=== PATIENT | female | born 1955 | race Caucasian/White ===

== ENCOUNTER 2018-05-18 15:19 | Inpatient (IN) | payer MEDICAID ==
[~2018-05-18] VITALS: Ht 165.1 cm; Wt 54.5 kg
[~2018-05-18 15:19] MED LIST: ALB0.5UD IH; ALBU18HF2 IH; AMLO2.5T2 PO; ASPI-1265 PO; BUDE10.22 INH; CARV3.12 PO; CITA-278 PO; DULO-31 PO; FERR325T28 PO; FOLI-43 PO; FURO-150 PO; GABA800T2 PO; GUAI600T45 PO; KETO5DRO75 EACHEYE; LORA10TA65 PO; MONT10TA24 PO; NITR0.4T51 SL; PANT40TA4 PO; PRAV10TA38 PO; SPIIN INH; THI100T PO
[2018-05-18] MEDS ORDERED: HYDROcodone/acetaminophen 5mg/325mg tablet PO ONE (15:55)
[2018-05-18] MEDS ORDERED: morphine 5 MG/ML injection IV ONE (16:50)
[2018-05-18] MEDS ORDERED: morphine 4 MG/ML inj SYRINge IV ONE ×2 (16:55→18:35)
[2018-05-18] MEDS ORDERED: ipratropium/albuterol 3ml nebule NEB ONE (16:55)
[2018-05-18 17:14] LABS: BASOPHILS % (AUTO) 0.3 % (0-1); EOSINOPHILS % (AUTO) 0.7 % (0-6); HEMATOCRIT 38.7 % (35.0-45.0); HEMOGLOBIN 12.9 g/dl (12.0-16.0); LYMPHOCYTES # (AUTO) 0.5 X10'3 (1.1-4.8); LYMPHOCYTES % (AUTO) 11.5 % (21-51); MEAN CORPUSCULAR HEMOGLOBIN 31.6 PG (27.0-31.0); MEAN CORPUSCULAR HGB CONC 33.3 % (33.0-36.5); MEAN CORPUSCULAR VOLUME 94.8 FL (78-98); MEAN PLATELET VOLUME 8.4 FL (7.4-10.4); MONOCYTES # (AUTO) 0.5 X10'3 (0-0.9); NEUTROPHILS # (AUTO) 3.3 X10'3 (1.8-7.7); NEUTROPHILS % (AUTO) 75.5 % (42-75); PLATELET COUNT 98 X10'3 (140-440); RED BLOOD COUNT 4.08 X10'6 (4.20-5.60); RED CELL DISTRIBUTION WIDTH 15.2 % (11.5-14.5); WHITE BLOOD COUNT 4.4 X10'3 (4.5-11.0)
[2018-05-18 17:24] LABS: INR 1.1 INR; PARTIAL THROMBOPLASTIN TIME 28 SECONDS (22-32); PROTHROMBIN TIME 11.8 SECONDS (9.0-12.0)
[2018-05-18 17:30] LABS: ALANINE AMINOTRANSFERASE 22 U/L (12-78); ALBUMIN 3.1 G/DL (3.4-5.0); ALBUMIN/GLOBULIN RATIO 0.7 (1.1-1.5); ALKALINE PHOSPHATASE 190 IU/L (46-116); ANION GAP 10 (8-16); ASPARTATE AMINO TRANSFERASE 38 U/L (10-37); BILIRUBIN,TOTAL 1.1 MG/DL (0.1-1.0); BLOOD UREA NITROGEN 7 MG/DL (7-18); CALCIUM 8.4 MG/DL (8.5-10.1); CHLORIDE 96 MMOL/L (99-107); CREATININE 0.88 MG/DL (0.40-0.90); GLUCOSE 102 MG/DL (70-104); SODIUM 135 MMOL/L (135-145); TOTAL CARBON DIOXIDE 29.3 MMOL/L (24-32); TOTAL PROTEIN 7.8 G/DL (6.4-8.2); eGFR 65 ML/MIN
[2018-05-18 17:38] LABS: POTASSIUM 2.7 MMOL/L (3.5-5.1)
[2018-05-18] MEDS ORDERED: potassium Cl 20 mEq SR tablet PO ONE (17:40)
[2018-05-18] MEDS ORDERED: normal saline 1000ML IV soln IVB ONE (17:40)
[2018-05-18 17:54] LABS: CLARITY,URINE CLEAR (Clear); COLOR,URINE STRAW (Yellow); GLUCOSE, URINE NEGATIVE (Neg); KETONES,URINE NEGATIVE (Neg); LEUKOCYTE ESTERASE ,URINE NEGATIVE (Neg); NITRITES, URINE NEGATIVE (Neg); OCCULT BLOOD,URINE NEGATIVE (Neg); PROTEIN,URINE NEGATIVE (Neg); UA COLLECTION TYPE FOLEY CATH; UROBILINOGEN,URINE 0.2 E.U/dL (0.2-1.0)
[2018-05-18] MEDS: magnesium 1gm/100ml D5W IVPB 100 ML IV SCH ×2 (18:02→19:16)
[2018-05-18 18:05] LABS: MAGNESIUM 1.4 MG/DL (1.5-2.4)
[2018-05-18] MEDS: potassium 10mEq/100ml NS w/LIDOcaine (10mg/bag) IV SCH ×2 (18:09→19:15)
[2018-05-18] MEDS ORDERED: CefTRIAXone/D5W-Rocephin 1gm 50 ML IV ONE (18:35)
[2018-05-18] MEDS ORDERED: magnesium 1gm/100ml D5W IVPB 50 ML IV PRN (20:35)
[2018-05-18] MEDS ORDERED: morphine 4 MG/ML inj SYRINge IV PRN (20:35)
[2018-05-18] MEDS ORDERED: potassium Cl 20 mEq SR tablet PO PRN ×2 (20:35)
[2018-05-18] MEDS ORDERED: bisacodyl 10mg suppository rectal RC PRN (20:35)
[2018-05-18] MEDS ORDERED: potassium Cl 40MEQ/NS 500ml 500 ML IV PRN ×2 (20:35)
[2018-05-18] MEDS ORDERED: acetaminophen 325mg tablet PO PRN (20:35)
[2018-05-18] MEDS ORDERED: magnesium 4gm in 100ml NS 100 ML IV PRN (20:35)
[2018-05-18] MEDS ORDERED: nitroGLYCERIN 0.4mg SUBLingual tab SL PRN (20:45)
[2018-05-18] MEDS ORDERED: albuterol 2.5 MG/3 ML nebule NEB PRN (21:00)
[2018-05-18 21:33] VITALS: BP 179/87
[2018-05-18] MEDS: morphine 4 MG/ML inj SYRINge IV PRN (21:53)
[2018-05-18] MEDS: montelukast 10mg tablet PO SCH (21:55)
[2018-05-18] MEDS: normal saline 1000ml 1,000 ML IV SCH (21:55)
[2018-05-18] MEDS: amLODIPine 5mg tablet PO SCH (21:56)
[2018-05-19] VITALS (21 sets, daily range): BP systolic 110–178; BP diastolic 65–103
[2018-05-19] MEDS: morphine 4 MG/ML inj SYRINge IV PRN ×2 (01:57→05:42)
[2018-05-19] MEDS: ipratropium/albuterol 3ml nebule NEB SCH ×7 (03:15→23:09)
[2018-05-19 06:00] LABS: BASOPHILS % (AUTO) 0.2 % (0-1); EOSINOPHILS % (AUTO) 1.1 % (0-6); HEMATOCRIT 36.6 % (35.0-45.0); HEMOGLOBIN 12.5 g/dl (12.0-16.0); LYMPHOCYTES # (AUTO) 0.6 X10'3 (1.1-4.8); LYMPHOCYTES % (AUTO) 15.1 % (21-51); MEAN CORPUSCULAR HEMOGLOBIN 31.9 PG (27.0-31.0); MEAN CORPUSCULAR HGB CONC 34.2 % (33.0-36.5); MEAN CORPUSCULAR VOLUME 93.5 FL (78-98); MEAN PLATELET VOLUME 8.6 FL (7.4-10.4); MONOCYTES # (AUTO) 0.5 X10'3 (0-0.9); MONOCYTES % (AUTO) 11.8 % (2-12); NEUTROPHILS % (AUTO) 71.8 % (42-75); PLATELET COUNT 93 X10'3 (140-440); RED BLOOD COUNT 3.91 X10'6 (4.20-5.60); RED CELL DISTRIBUTION WIDTH 15.1 % (11.5-14.5); WHITE BLOOD COUNT 4.2 X10'3 (4.5-11.0)
[2018-05-19 06:25] LABS: ALANINE AMINOTRANSFERASE 21 U/L (12-78); ALBUMIN/GLOBULIN RATIO 0.7 (1.1-1.5); ALKALINE PHOSPHATASE 165 IU/L (46-116); ANION GAP 6 (8-16); ASPARTATE AMINO TRANSFERASE 41 U/L (10-37); BILIRUBIN,TOTAL 0.9 MG/DL (0.1-1.0); BLOOD UREA NITROGEN 5 MG/DL (7-18); BUN/CREATININE RATIO 8.2 (6.6-38.0); CALCIUM 7.6 MG/DL (8.5-10.1); CHLORIDE 98 MMOL/L (99-107); CREATININE 0.61 MG/DL (0.40-0.90); GLUCOSE 115 MG/DL (70-104); MAGNESIUM 1.4 MG/DL (1.5-2.4); PHOSPHORUS 2.4 MG/DL (2.3-4.5); POTASSIUM 3.2 MMOL/L (3.5-5.1); SODIUM 134 MMOL/L (135-145); TOTAL CARBON DIOXIDE 30.2 MMOL/L (24-32); TOTAL PROTEIN 7.6 G/DL (6.4-8.2); eGFR > 90 ML/MIN
[2018-05-19] MEDS: aspirin 81mg tab.chew PO SCH (08:00)
[2018-05-19] MEDS: BUDESONIDE 0.25 MG/2 ML AMPUL.NEB IH SCH ×2 (08:07→19:37)
[2018-05-19] MEDS: pantoprazole 40mg Tablet.DR PO SCH (08:33)
[2018-05-19] MEDS: atorvastatin 10mg tablet PO SCH (08:33)
[2018-05-19] MEDS: citalopram 20mg tablet PO SCH (08:33)
[2018-05-19] MEDS: ferrous sulfate 325mg tablet PO SCH (08:34)
[2018-05-19] MEDS: duloxetine 30mg CAPSULE.DR PO SCH (08:34)
[2018-05-19] MEDS: furosemide 20MG tablet PO SCH (08:34)
[2018-05-19] MEDS: folic acid 1mg tablet PO SCH (08:34)
[2018-05-19] MEDS: carVEDilol 3.125mg tablet PO SCH ×2 (08:34→19:40)
[2018-05-19] MEDS: thiamine 100mg tablet PO SCH (08:34)
[2018-05-19] MEDS: naphazoline/pheniramine eye 1 DROP BOTTLE EACHEYE SCH ×2 (08:40→19:40)
[2018-05-19] MEDS: magnesium Cl slow-release 64mg tablet PO PRN ×2 (08:48→19:39)
[2018-05-19] MEDS ORDERED: morphine 4 MG/ML inj SYRINge IV PRN ×6 (09:10→17:15)
[2018-05-19] MEDS ORDERED: ringers solution, lacted 1,000 ML IV SCH ×2 (11:12→13:40)
[2018-05-19] MEDS ORDERED: hydrALAZINE 20mg/ml inj. IV PRN (11:15)
[2018-05-19] MEDS ORDERED: fentaNYL/PF 50MCG/1 ML 2ML syringe IV PRN ×2 (11:15)
[2018-05-19] MEDS ORDERED: ondansetron/PF 4mg/2ml inj IV PRN ×3 (11:15→16:30)
[2018-05-19] MEDS ORDERED: clindamycin 600mg/D5W 50ml 50 ML IV ONE (12:00)
[2018-05-19] MEDS ORDERED: BUPIVAcaine/PF 7.5mg/ml (0.75%) 10ml vial ONE (12:47)
[2018-05-19] MEDS ORDERED: midazolam 2 mg/2 ml injection ONE (12:51)
[2018-05-19] MEDS ORDERED: fentaNYL/PF 50MCG/1 ML 2ML syringe ONE (12:51)
[2018-05-19] MEDS ORDERED: meperidine/PF 25mg/ml syringe IV PRN ×3 (13:40)
[2018-05-19] MEDS ORDERED: proCHLORperazine 10 MG/2 ml inj IV PRN (13:40)
[2018-05-19] MEDS ORDERED: ePHEDrine 50MG/ML INJ. ONE (14:22)
[2018-05-19] MEDS ORDERED: propofol inj 20 ML IV ONE (14:22)
[2018-05-19] MEDS ORDERED: bisacodyl 10mg suppository rectal RC PRN (14:30)
[2018-05-19] MEDS ORDERED: magnesium hydroxide 30ml (MOM) UD suspension PO PRN (14:30)
[2018-05-19] MEDS ORDERED: diphenhydrAMINE 25mg capsule PO PRN ×2 (14:30)
[2018-05-19] MEDS ORDERED: HYDROcodone/acetaminophen 5mg/325mg tablet PO PRN (16:30)
[2018-05-19] MEDS: HYDROcodone/acetaminophen 5mg/325mg tablet PO PRN ×2 (17:43→23:28)
[2018-05-19] MEDS: clindamycin 600mg/D5W 50ml 50 ML IV SCH (19:43)
[2018-05-19] MEDS: sennosides 8.6mg tablet PO SCH (21:10)
[2018-05-19] MEDS: montelukast 10mg tablet PO SCH (21:10)
[2018-05-19] MEDS: amLODIPine 5mg tablet PO SCH (21:10)
[2018-05-20] MEDS: clindamycin 600mg/D5W 50ml 50 ML IV SCH (01:39)
[2018-05-20 02:00] VITALS: BP 126/73
[2018-05-20] MEDS: ipratropium/albuterol 3ml nebule NEB SCH ×6 (03:24→23:12)
[2018-05-20 05:41] LABS: ALANINE AMINOTRANSFERASE 29 U/L (12-78); ALBUMIN 2.5 G/DL (3.4-5.0); ALBUMIN/GLOBULIN RATIO 0.6 (1.1-1.5); ALKALINE PHOSPHATASE 122 IU/L (46-116); ANION GAP 5 (8-16); ASPARTATE AMINO TRANSFERASE 58 U/L (10-37); BILIRUBIN,TOTAL 1.1 MG/DL (0.1-1.0); BLOOD UREA NITROGEN 10 MG/DL (7-18); BUN/CREATININE RATIO 8.8 (6.6-38.0); CALCIUM 8.1 MG/DL (8.5-10.1); CHLORIDE 96 MMOL/L (99-107); CREATININE 1.14 MG/DL (0.40-0.90); GLUCOSE 100 MG/DL (70-104); PHOSPHORUS 3.4 MG/DL (2.3-4.5); SODIUM 128 MMOL/L (135-145); TOTAL CARBON DIOXIDE 27.2 MMOL/L (24-32); TOTAL PROTEIN 6.5 G/DL (6.4-8.2); eGFR 48 ML/MIN
[2018-05-20] MEDS: HYDROcodone/acetaminophen 5mg/325mg tablet PO PRN ×4 (05:43→20:16)
[2018-05-20 05:45] LABS: POTASSIUM 3.8 MMOL/L (3.5-5.1)
[2018-05-20 06:00] VITALS: BP 138/79
[2018-05-20] MEDS: folic acid 1mg tablet PO SCH (07:08)
[2018-05-20] MEDS: magnesium Cl slow-release 64mg tablet PO PRN ×2 (07:08→23:32)
[2018-05-20] MEDS: duloxetine 30mg CAPSULE.DR PO SCH (07:08)
[2018-05-20] MEDS: citalopram 20mg tablet PO SCH (07:08)
[2018-05-20] MEDS: aspirin 81mg tab.chew PO SCH (07:08)
[2018-05-20] MEDS: ferrous sulfate 325mg tablet PO SCH (07:09)
[2018-05-20] MEDS: atorvastatin 10mg tablet PO SCH (07:09)
[2018-05-20] MEDS: thiamine 100mg tablet PO SCH (07:09)
[2018-05-20] MEDS: pantoprazole 40mg Tablet.DR PO SCH (07:09)
[2018-05-20] MEDS: furosemide 20MG tablet PO SCH (07:34)
[2018-05-20] MEDS: naphazoline/pheniramine eye 1 DROP BOTTLE EACHEYE SCH ×2 (07:34→20:36)
[2018-05-20] MEDS: carVEDilol 3.125mg tablet PO SCH ×2 (07:34→20:36)
[2018-05-20 07:47] LABS: BASOPHILS % (AUTO) 0.2 % (0-1); EOSINOPHILS # (AUTO) 0.1 X10'3 (0-0.9); EOSINOPHILS % (AUTO) 1.9 % (0-6); HEMATOCRIT 32.2 % (35.0-45.0); LYMPHOCYTES # (AUTO) 0.5 X10'3 (1.1-4.8); LYMPHOCYTES % (AUTO) 12.3 % (21-51); MEAN CORPUSCULAR HEMOGLOBIN 31.5 PG (27.0-31.0); MEAN CORPUSCULAR HGB CONC 34.1 % (33.0-36.5); MEAN CORPUSCULAR VOLUME 92.6 FL (78-98); MEAN PLATELET VOLUME 8.5 FL (7.4-10.4); MONOCYTES # (AUTO) 0.4 X10'3 (0-0.9); MONOCYTES % (AUTO) 9.6 % (2-12); NEUTROPHILS # (AUTO) 2.9 X10'3 (1.8-7.7); PLATELET COUNT 79 X10'3 (140-440); RED BLOOD COUNT 3.48 X10'6 (4.20-5.60); RED CELL DISTRIBUTION WIDTH 14.9 % (11.5-14.5); WHITE BLOOD COUNT 3.8 X10'3 (4.5-11.0)
[2018-05-20] MEDS: enoxaparin 40mg/0.4ml syringe SQ SCH (08:00)
[2018-05-20] MEDS: normal saline 1000ml 1,000 ML IV SCH (08:44)
[2018-05-20] MEDS: BUDESONIDE 0.25 MG/2 ML AMPUL.NEB IH SCH ×2 (08:46→19:17)
[2018-05-20 10:00] VITALS: BP 102/56
[2018-05-20] MEDS ORDERED: HYDROcodone/acetaminophen 5mg/325mg tablet PO PRN (11:20)
[2018-05-20] MEDS ORDERED: morphine 4 MG/ML inj SYRINge IV PRN (11:25)
[2018-05-20 14:00] VITALS: BP 107/52
[2018-05-20 18:00] VITALS: BP 121/66
[2018-05-20] MEDS: amLODIPine 5mg tablet PO SCH (20:36)
[2018-05-20] MEDS: sennosides 8.6mg tablet PO SCH (20:36)
[2018-05-20] MEDS: montelukast 10mg tablet PO SCH (20:36)
[2018-05-20] MEDS: gabapentin 400mg capsule PO SCH ×2 (21:00→21:12)
[2018-05-20] MEDS ORDERED: gabapentin 400mg capsule PO ONE (21:25)
[2018-05-20 22:00] VITALS: BP 134/76
[2018-05-21] MEDS: HYDROcodone/acetaminophen 5mg/325mg tablet PO PRN ×5 (01:17→22:19)
[2018-05-21] MEDS: normal saline 1000ml 1,000 ML IV SCH (01:18)
[2018-05-21] MEDS: ipratropium/albuterol 3ml nebule NEB SCH ×6 (03:00→23:25)
[2018-05-21 06:00] VITALS: BP 123/93
[2018-05-21 06:08] LABS: BASOPHILS % (AUTO) 0 % (0-1); EOSINOPHILS # (AUTO) 0.1 X10'3 (0-0.9); EOSINOPHILS % (AUTO) 2.8 % (0-6); HEMATOCRIT 31.6 % (35.0-45.0); HEMOGLOBIN 10.7 g/dl (12.0-16.0); LYMPHOCYTES # (AUTO) 0.5 X10'3 (1.1-4.8); LYMPHOCYTES % (AUTO) 9.8 % (21-51); MEAN CORPUSCULAR HEMOGLOBIN 31.6 PG (27.0-31.0); MEAN CORPUSCULAR HGB CONC 33.7 % (33.0-36.5); MEAN CORPUSCULAR VOLUME 93.8 FL (78-98); MEAN PLATELET VOLUME 8.1 FL (7.4-10.4); MONOCYTES # (AUTO) 0.4 X10'3 (0-0.9); MONOCYTES % (AUTO) 8.4 % (2-12); NEUTROPHILS # (AUTO) 4.2 X10'3 (1.8-7.7); PLATELET COUNT 79 X10'3 (140-440); RED BLOOD COUNT 3.37 X10'6 (4.20-5.60); RED CELL DISTRIBUTION WIDTH 14.8 % (11.5-14.5); WHITE BLOOD COUNT 5.3 X10'3 (4.5-11.0)
[2018-05-21 06:40] LABS: ALANINE AMINOTRANSFERASE 29 U/L (12-78); ALBUMIN 2.5 G/DL (3.4-5.0); ALBUMIN/GLOBULIN RATIO 0.6 (1.1-1.5); ALKALINE PHOSPHATASE 122 IU/L (46-116); ANION GAP 8 (8-16); ASPARTATE AMINO TRANSFERASE 60 U/L (10-37); BILIRUBIN,TOTAL 1.1 MG/DL (0.1-1.0); BLOOD UREA NITROGEN 12 MG/DL (7-18); BUN/CREATININE RATIO 9.9 (6.6-38.0); CALCIUM 8.4 MG/DL (8.5-10.1); CHLORIDE 97 MMOL/L (99-107); CREATININE 1.21 MG/DL (0.40-0.90); GLUCOSE 104 MG/DL (70-104); MAGNESIUM 1.2 MG/DL (1.5-2.4); PHOSPHORUS 4.6 MG/DL (2.3-4.5); POTASSIUM 3.9 MMOL/L (3.5-5.1); SODIUM 132 MMOL/L (135-145); TOTAL CARBON DIOXIDE 26.6 MMOL/L (24-32); TOTAL PROTEIN 6.6 G/DL (6.4-8.2); eGFR 45 ML/MIN
[2018-05-21] MEDS: furosemide 20MG tablet PO SCH (07:27)
[2018-05-21] MEDS: citalopram 20mg tablet PO SCH (07:27)
[2018-05-21] MEDS: folic acid 1mg tablet PO SCH (07:27)
[2018-05-21] MEDS: aspirin 81mg tab.chew PO SCH (07:27)
[2018-05-21] MEDS: pantoprazole 40mg Tablet.DR PO SCH (07:27)
[2018-05-21] MEDS: ferrous sulfate 325mg tablet PO SCH (07:28)
[2018-05-21] MEDS: thiamine 100mg tablet PO SCH (07:32)
[2018-05-21] MEDS: enoxaparin 40mg/0.4ml syringe SQ SCH (07:32)
[2018-05-21] MEDS: atorvastatin 10mg tablet PO SCH (07:32)
[2018-05-21] MEDS: magnesium Cl slow-release 64mg tablet PO PRN ×2 (07:32→20:24)
[2018-05-21] MEDS: gabapentin 400mg capsule PO SCH ×2 (07:32→17:09)
[2018-05-21] MEDS: duloxetine 30mg CAPSULE.DR PO SCH (07:32)
[2018-05-21] MEDS: carVEDilol 3.125mg tablet PO SCH ×2 (07:32→20:25)
[2018-05-21] MEDS: naphazoline/pheniramine eye 1 DROP BOTTLE EACHEYE SCH ×2 (07:35→20:25)
[2018-05-21] MEDS: BUDESONIDE 0.25 MG/2 ML AMPUL.NEB IH SCH ×2 (08:57→19:28)
[2018-05-21 10:46] VITALS: BP 113/52
[2018-05-21 18:00] VITALS: BP 124/61
[2018-05-21 20:00] VITALS: BP 108/50
[2018-05-21] MEDS: sennosides 8.6mg tablet PO SCH (20:24)
[2018-05-21] MEDS: montelukast 10mg tablet PO SCH (20:24)
[2018-05-21] MEDS: amLODIPine 5mg tablet PO SCH (21:00)
[2018-05-21 22:00] VITALS: BP 109/72
[2018-05-21 22:21] VITALS: BP 102/48
[2018-05-22] MEDS: normal saline 1000ml 1,000 ML IV SCH ×2 (02:14→15:25)
[2018-05-22] MEDS: ipratropium/albuterol 3ml nebule NEB SCH ×6 (03:18→23:34)
[2018-05-22] MEDS: HYDROcodone/acetaminophen 5mg/325mg tablet PO PRN ×4 (03:49→20:30)
[2018-05-22 06:00] VITALS: BP 124/61
[2018-05-22 06:26] LABS: BASOPHILS % (AUTO) 0.1 % (0-1); EOSINOPHILS # (AUTO) 0.1 X10'3 (0-0.9); EOSINOPHILS % (AUTO) 1.2 % (0-6); HEMATOCRIT 29.2 % (35.0-45.0); HEMOGLOBIN 9.8 g/dl (12.0-16.0); LYMPHOCYTES # (AUTO) 0.3 X10'3 (1.1-4.8); LYMPHOCYTES % (AUTO) 6.7 % (21-51); MEAN CORPUSCULAR HEMOGLOBIN 31.5 PG (27.0-31.0); MEAN CORPUSCULAR HGB CONC 33.7 % (33.0-36.5); MEAN CORPUSCULAR VOLUME 93.7 FL (78-98); MONOCYTES # (AUTO) 0.5 X10'3 (0-0.9); MONOCYTES % (AUTO) 10.2 % (2-12); NEUTROPHILS # (AUTO) 4.2 X10'3 (1.8-7.7); NEUTROPHILS % (AUTO) 81.8 % (42-75); PLATELET COUNT 82 X10'3 (140-440); RED BLOOD COUNT 3.11 X10'6 (4.20-5.60); RED CELL DISTRIBUTION WIDTH 14.9 % (11.5-14.5); WHITE BLOOD COUNT 5.1 X10'3 (4.5-11.0)
[2018-05-22 06:56] LABS: ALANINE AMINOTRANSFERASE 30 U/L (12-78); ALBUMIN 2.6 G/DL (3.4-5.0); ALBUMIN/GLOBULIN RATIO 0.7 (1.1-1.5); ALKALINE PHOSPHATASE 144 IU/L (46-116); ANION GAP 10 (8-16); ASPARTATE AMINO TRANSFERASE 62 U/L (10-37); BILIRUBIN,TOTAL 1.2 MG/DL (0.1-1.0); BLOOD UREA NITROGEN 15 MG/DL (7-18); CALCIUM 8.5 MG/DL (8.5-10.1); CHLORIDE 95 MMOL/L (99-107); CREATININE 1.25 MG/DL (0.40-0.90); GLUCOSE 107 MG/DL (70-104); MAGNESIUM 1.4 MG/DL (1.5-2.4); PHOSPHORUS 4.7 MG/DL (2.3-4.5); POTASSIUM 3.5 MMOL/L (3.5-5.1); SODIUM 128 MMOL/L (135-145); TOTAL CARBON DIOXIDE 23.2 MMOL/L (24-32); TOTAL PROTEIN 6.5 G/DL (6.4-8.2); eGFR 43 ML/MIN
[2018-05-22] MEDS: aspirin 81mg tab.chew PO SCH (07:39)
[2018-05-22] MEDS: ferrous sulfate 325mg tablet PO SCH (07:40)
[2018-05-22] MEDS: furosemide 20MG tablet PO SCH (07:40)
[2018-05-22] MEDS: duloxetine 30mg CAPSULE.DR PO SCH (07:40)
[2018-05-22] MEDS: carVEDilol 3.125mg tablet PO SCH ×2 (07:40→20:23)
[2018-05-22] MEDS: atorvastatin 10mg tablet PO SCH (07:40)
[2018-05-22] MEDS: citalopram 20mg tablet PO SCH (07:40)
[2018-05-22] MEDS: folic acid 1mg tablet PO SCH (07:40)
[2018-05-22] MEDS: gabapentin 400mg capsule PO SCH ×4 (07:41→23:49)
[2018-05-22] MEDS: naphazoline/pheniramine eye 1 DROP BOTTLE EACHEYE SCH ×2 (07:41→20:24)
[2018-05-22] MEDS: pantoprazole 40mg Tablet.DR PO SCH (07:41)
[2018-05-22] MEDS: thiamine 100mg tablet PO SCH (07:41)
[2018-05-22] MEDS: enoxaparin 40mg/0.4ml syringe SQ SCH (07:44)
[2018-05-22] MEDS: BUDESONIDE 0.25 MG/2 ML AMPUL.NEB IH SCH ×2 (08:18→19:49)
[2018-05-22 10:00] VITALS: BP 108/60
[2018-05-22 18:15] VITALS: BP 125/65
[2018-05-22] MEDS: amLODIPine 5mg tablet PO SCH (20:23)
[2018-05-22] MEDS: montelukast 10mg tablet PO SCH (20:23)
[2018-05-22] MEDS: sennosides 8.6mg tablet PO SCH (21:00)
[2018-05-22 22:00] VITALS: BP 122/72
[2018-05-23] MEDS: ipratropium/albuterol 3ml nebule NEB SCH ×6 (02:52→23:26)
[2018-05-23 05:39] LABS: BASOPHILS % (AUTO) 0.2 % (0-1); EOSINOPHILS # (AUTO) 0.1 X10'3 (0-0.9); EOSINOPHILS % (AUTO) 2.3 % (0-6); HEMATOCRIT 27.4 % (35.0-45.0); HEMOGLOBIN 9.4 g/dl (12.0-16.0); LYMPHOCYTES # (AUTO) 0.4 X10'3 (1.1-4.8); LYMPHOCYTES % (AUTO) 11.3 % (21-51); MEAN CORPUSCULAR HEMOGLOBIN 32.2 PG (27.0-31.0); MEAN CORPUSCULAR HGB CONC 34.5 % (33.0-36.5); MEAN CORPUSCULAR VOLUME 93.3 FL (78-98); MEAN PLATELET VOLUME 7.9 FL (7.4-10.4); MONOCYTES # (AUTO) 0.5 X10'3 (0-0.9); MONOCYTES % (AUTO) 14.7 % (2-12); NEUTROPHILS # (AUTO) 2.4 X10'3 (1.8-7.7); NEUTROPHILS % (AUTO) 71.5 % (42-75); PLATELET COUNT 74 X10'3 (140-440); RED BLOOD COUNT 2.93 X10'6 (4.20-5.60); RED CELL DISTRIBUTION WIDTH 15.1 % (11.5-14.5); WHITE BLOOD COUNT 3.4 X10'3 (4.5-11.0)
[2018-05-23 06:00] VITALS: BP 124/61
[2018-05-23 06:03] LABS: ALANINE AMINOTRANSFERASE 34 U/L (12-78); ALBUMIN 2.4 G/DL (3.4-5.0); ALBUMIN/GLOBULIN RATIO 0.6 (1.1-1.5); ALKALINE PHOSPHATASE 224 IU/L (46-116); ANION GAP 4 (8-16); ASPARTATE AMINO TRANSFERASE 80 U/L (10-37); BILIRUBIN,TOTAL 0.9 MG/DL (0.1-1.0); BLOOD UREA NITROGEN 17 MG/DL (7-18); BUN/CREATININE RATIO 14.7 (6.6-38.0); CALCIUM 8.2 MG/DL (8.5-10.1); CHLORIDE 98 MMOL/L (99-107); CREATININE 1.16 MG/DL (0.40-0.90); GLUCOSE 116 MG/DL (70-104); MAGNESIUM 1.2 MG/DL (1.5-2.4); POTASSIUM 3.6 MMOL/L (3.5-5.1); SODIUM 130 MMOL/L (135-145); TOTAL CARBON DIOXIDE 27.6 MMOL/L (24-32); TOTAL PROTEIN 6.3 G/DL (6.4-8.2); eGFR 47 ML/MIN
[2018-05-23] MEDS: HYDROcodone/acetaminophen 5mg/325mg tablet PO PRN ×4 (06:32→20:28)
[2018-05-23] MEDS: BUDESONIDE 0.25 MG/2 ML AMPUL.NEB IH SCH ×2 (06:45→19:28)
[2018-05-23] MEDS: duloxetine 30mg CAPSULE.DR PO SCH (07:54)
[2018-05-23] MEDS: aspirin 81mg tab.chew PO SCH (07:54)
[2018-05-23] MEDS: carVEDilol 3.125mg tablet PO SCH ×2 (07:54→20:28)
[2018-05-23] MEDS: citalopram 20mg tablet PO SCH (07:54)
[2018-05-23] MEDS: pantoprazole 40mg Tablet.DR PO SCH (07:55)
[2018-05-23] MEDS: gabapentin 400mg capsule PO SCH ×2 (07:55→15:21)
[2018-05-23] MEDS: folic acid 1mg tablet PO SCH (07:55)
[2018-05-23] MEDS: atorvastatin 10mg tablet PO SCH (07:55)
[2018-05-23] MEDS: thiamine 100mg tablet PO SCH (07:55)
[2018-05-23] MEDS: ferrous sulfate 325mg tablet PO SCH (07:55)
[2018-05-23] MEDS: furosemide 20MG tablet PO SCH (07:55)
[2018-05-23] MEDS: enoxaparin 40mg/0.4ml syringe SQ SCH (07:56)
[2018-05-23] MEDS: naphazoline/pheniramine eye 1 DROP BOTTLE EACHEYE SCH ×2 (07:56→20:29)
[2018-05-23 10:00] VITALS: BP 117/56
[2018-05-23] MEDS: normal saline 1000ml 1,000 ML IV SCH ×2 (10:32→20:01)
[2018-05-23] MEDS ORDERED: HYDROcodone/acetaminophen 5mg/325mg tablet PO PRN (14:45)
[2018-05-23] MEDS: magnesium Cl slow-release 64mg tablet PO PRN (18:51)
[2018-05-23 18:56] VITALS: BP 115/67
[2018-05-23] MEDS: montelukast 10mg tablet PO SCH (20:28)
[2018-05-23] MEDS: sennosides 8.6mg tablet PO SCH (20:28)
[2018-05-23] MEDS: amLODIPine 5mg tablet PO SCH (20:28)
[2018-05-23 22:06] VITALS: BP 102/49
[2018-05-24] MEDS: gabapentin 400mg capsule PO SCH ×2 (00:21→08:11)
[2018-05-24] MEDS: HYDROcodone/acetaminophen 5mg/325mg tablet PO PRN ×4 (00:22→18:57)
[2018-05-24] MEDS: normal saline 1000ml 1,000 ML IV SCH ×2 (00:22→18:52)
[2018-05-24] MEDS: ipratropium/albuterol 3ml nebule NEB SCH ×6 (02:29→23:43)
[2018-05-24 06:00] VITALS: BP 148/82
[2018-05-24 06:02] LABS: BASOPHILS % (AUTO) 0.3 % (0-1); EOSINOPHILS # (AUTO) 0.1 X10'3 (0-0.9); EOSINOPHILS % (AUTO) 2.3 % (0-6); HEMATOCRIT 26.8 % (35.0-45.0); LYMPHOCYTES # (AUTO) 0.5 X10'3 (1.1-4.8); LYMPHOCYTES % (AUTO) 16.7 % (21-51); MEAN CORPUSCULAR HEMOGLOBIN 31.8 PG (27.0-31.0); MEAN CORPUSCULAR HGB CONC 33.7 % (33.0-36.5); MEAN CORPUSCULAR VOLUME 94.6 FL (78-98); MEAN PLATELET VOLUME 8.2 FL (7.4-10.4); MONOCYTES # (AUTO) 0.5 X10'3 (0-0.9); MONOCYTES % (AUTO) 15.4 % (2-12); NEUTROPHILS % (AUTO) 65.3 % (42-75); PLATELET COUNT 81 X10'3 (140-440); RED BLOOD COUNT 2.83 X10'6 (4.20-5.60); RED CELL DISTRIBUTION WIDTH 15.2 % (11.5-14.5); WHITE BLOOD COUNT 3.1 X10'3 (4.5-11.0)
[2018-05-24 06:17] LABS: ALANINE AMINOTRANSFERASE 34 U/L (12-78); ALBUMIN 2.3 G/DL (3.4-5.0); ALBUMIN/GLOBULIN RATIO 0.6 (1.1-1.5); ALKALINE PHOSPHATASE 223 IU/L (46-116); ANION GAP 7 (8-16); ASPARTATE AMINO TRANSFERASE 68 U/L (10-37); BILIRUBIN,TOTAL 0.9 MG/DL (0.1-1.0); BLOOD UREA NITROGEN 15 MG/DL (7-18); BUN/CREATININE RATIO 15.3 (6.6-38.0); CALCIUM 8.2 MG/DL (8.5-10.1); CHLORIDE 100 MMOL/L (99-107); CREATININE 0.98 MG/DL (0.40-0.90); GLUCOSE 111 MG/DL (70-104); POTASSIUM 3.2 MMOL/L (3.5-5.1); SODIUM 134 MMOL/L (135-145); TOTAL CARBON DIOXIDE 26.8 MMOL/L (24-32); TOTAL PROTEIN 6.2 G/DL (6.4-8.2); eGFR 57 ML/MIN
[2018-05-24] MEDS ORDERED: potassium Cl 20 mEq SR tablet PO PRN (06:40)
[2018-05-24] MEDS ORDERED: potassium Cl 40MEQ/NS 500ml 500 ML IV PRN ×2 (06:40)
[2018-05-24] MEDS: magnesium Cl slow-release 64mg tablet PO PRN (06:40)
[2018-05-24] MEDS: BUDESONIDE 0.25 MG/2 ML AMPUL.NEB IH SCH ×2 (07:45→20:26)
[2018-05-24] MEDS ORDERED: magnesium 4gm in 100ml NS 100 ML IV PRN (08:00)
[2018-05-24] MEDS: enoxaparin 40mg/0.4ml syringe SQ SCH (08:00)
[2018-05-24] MEDS: naphazoline/pheniramine eye 1 DROP BOTTLE EACHEYE SCH ×2 (08:00→20:41)
[2018-05-24] MEDS: ferrous sulfate 325mg tablet PO SCH (08:10)
[2018-05-24] MEDS: citalopram 20mg tablet PO SCH (08:10)
[2018-05-24] MEDS: duloxetine 30mg CAPSULE.DR PO SCH (08:10)
[2018-05-24] MEDS: carVEDilol 3.125mg tablet PO SCH ×2 (08:10→20:39)
[2018-05-24] MEDS: aspirin 81mg tab.chew PO SCH (08:10)
[2018-05-24] MEDS: potassium Cl 20 mEq SR tablet PO PRN ×3 (08:11→20:38)
[2018-05-24] MEDS: thiamine 100mg tablet PO SCH (08:11)
[2018-05-24] MEDS: atorvastatin 10mg tablet PO SCH (08:11)
[2018-05-24] MEDS: furosemide 20MG tablet PO SCH (08:11)
[2018-05-24] MEDS: folic acid 1mg tablet PO SCH (08:11)
[2018-05-24] MEDS: pantoprazole 40mg Tablet.DR PO SCH (08:11)
[2018-05-24 10:00] VITALS: BP 114/60
[2018-05-24 18:00] VITALS: BP 125/77
[2018-05-24] MEDS: magnesium 1gm/100ml D5W IVPB 100 ML IV PRN ×2 (20:24→21:57)
[2018-05-24 20:32] VITALS: BP 134/89
[2018-05-24] MEDS: amLODIPine 5mg tablet PO SCH (20:38)
[2018-05-24] MEDS: gabapentin 300mg capsule PO SCH (20:39)
[2018-05-24] MEDS: sennosides 8.6mg tablet PO SCH (20:39)
[2018-05-24] MEDS: montelukast 10mg tablet PO SCH (20:39)
[2018-05-24 22:00] VITALS: BP 101/61
[2018-05-25] MEDS: HYDROcodone/acetaminophen 5mg/325mg tablet PO PRN ×4 (00:26→14:00)
[2018-05-25] MEDS: ipratropium/albuterol 3ml nebule NEB SCH ×3 (04:08→12:06)
[2018-05-25 05:54] LABS: BASOPHILS % (AUTO) 0.2 % (0-1); EOSINOPHILS # (AUTO) 0.1 X10'3 (0-0.9); EOSINOPHILS % (AUTO) 2.7 % (0-6); HEMATOCRIT 26.5 % (35.0-45.0); HEMOGLOBIN 8.9 g/dl (12.0-16.0); LYMPHOCYTES # (AUTO) 0.4 X10'3 (1.1-4.8); LYMPHOCYTES % (AUTO) 14.1 % (21-51); MEAN CORPUSCULAR HEMOGLOBIN 31.5 PG (27.0-31.0); MEAN CORPUSCULAR HGB CONC 33.6 % (33.0-36.5); MEAN CORPUSCULAR VOLUME 93.7 FL (78-98); MEAN PLATELET VOLUME 8.2 FL (7.4-10.4); MONOCYTES # (AUTO) 0.5 X10'3 (0-0.9); MONOCYTES % (AUTO) 16.4 % (2-12); NEUTROPHILS # (AUTO) 1.9 X10'3 (1.8-7.7); NEUTROPHILS % (AUTO) 66.6 % (42-75); PLATELET COUNT 87 X10'3 (140-440); RED BLOOD COUNT 2.83 X10'6 (4.20-5.60); RED CELL DISTRIBUTION WIDTH 15.4 % (11.5-14.5); WHITE BLOOD COUNT 2.9 X10'3 (4.5-11.0)
[2018-05-25 05:59] LABS: ALANINE AMINOTRANSFERASE 36 U/L (12-78); ALBUMIN 2.2 G/DL (3.4-5.0); ALBUMIN/GLOBULIN RATIO 0.6 (1.1-1.5); ALKALINE PHOSPHATASE 218 IU/L (46-116); ANION GAP 8 (8-16); ASPARTATE AMINO TRANSFERASE 56 U/L (10-37); BILIRUBIN,TOTAL 0.9 MG/DL (0.1-1.0); BLOOD UREA NITROGEN 14 MG/DL (7-18); BUN/CREATININE RATIO 15.2 (6.6-38.0); CALCIUM 8.3 MG/DL (8.5-10.1); CHLORIDE 101 MMOL/L (99-107); CREATININE 0.92 MG/DL (0.40-0.90); GLUCOSE 120 MG/DL (70-104); MAGNESIUM 1.6 MG/DL (1.5-2.4); POTASSIUM 3.6 MMOL/L (3.5-5.1); SODIUM 135 MMOL/L (135-145); TOTAL CARBON DIOXIDE 25.9 MMOL/L (24-32); eGFR 61 ML/MIN
[2018-05-25 06:00] VITALS: BP 126/66
[2018-05-25 07:39] LABS: TOTAL CELLS COUNTED 50
[2018-05-25 07:40] LABS: PLATELET ESTIMATE DECREASED
[2018-05-25 07:41] LABS: POLYCHROMASIA FEW
[2018-05-25] MEDS: BUDESONIDE 0.25 MG/2 ML AMPUL.NEB IH SCH (07:59)
[2018-05-25] MEDS: enoxaparin 40mg/0.4ml syringe SQ SCH (08:00)
[2018-05-25] MEDS: citalopram 20mg tablet PO SCH (08:18)
[2018-05-25] MEDS: atorvastatin 10mg tablet PO SCH (08:18)
[2018-05-25] MEDS: pantoprazole 40mg Tablet.DR PO SCH (08:18)
[2018-05-25] MEDS: duloxetine 30mg CAPSULE.DR PO SCH (08:18)
[2018-05-25] MEDS: gabapentin 300mg capsule PO SCH (08:18)
[2018-05-25] MEDS: folic acid 1mg tablet PO SCH (08:18)
[2018-05-25] MEDS: ferrous sulfate 325mg tablet PO SCH (08:18)
[2018-05-25] MEDS: carVEDilol 3.125mg tablet PO SCH (08:18)
[2018-05-25] MEDS: furosemide 20MG tablet PO SCH (08:18)
[2018-05-25] MEDS: aspirin 81mg tab.chew PO SCH (08:19)
[2018-05-25] MEDS: naphazoline/pheniramine eye 1 DROP BOTTLE EACHEYE SCH (08:19)
[2018-05-25] MEDS: thiamine 100mg tablet PO SCH (08:19)
[2018-05-25 10:00] VITALS: BP 144/66
[2018-05-25] MEDS ORDERED: ASPI-12 PO (11:14)
[2018-05-25] MEDS ORDERED: HYDR-565 PO (11:14)
== END 2018-05-25 14:05 | disposition home health service (06) | DRG 301 ==
LOC: ER 15:20 → ED HOLD 20:32 → ORTHO 4S 21:24
PROVIDERS: ADMIT Emergency Medicine; ATTEND Family Medicine
PROC: 0SRR0J9 Replacement of Right Hip Joint, Femoral Surface with Synthetic Substitute, Cemented, Open Approach (ICD-10-PCS; principal; 2018-05-19 12:48)
DX: S72.001A Fracture of unspecified part of neck of right femur, initial encounter for closed fracture (principal); D69.6 Thrombocytopenia, unspecified; I11.0 Hypertensive heart disease with heart failure; I50.32 Chronic diastolic (congestive) heart failure; E87.1 Hypo-osmolality and hyponatremia; Z99.81 Dependence on supplemental oxygen; E83.42 Hypomagnesemia; G62.9 Polyneuropathy, unspecified; K70.30 Alcoholic cirrhosis of liver without ascites; I25.10 Atherosclerotic heart disease of native coronary artery without angina pectoris; K21.9 Gastro-esophageal reflux disease without esophagitis; E78.00 Pure hypercholesterolemia, unspecified; J45.909 Unspecified asthma, uncomplicated; J44.9 Chronic obstructive pulmonary disease, unspecified; F41.9 Anxiety disorder, unspecified; F32.9 Major depressive disorder, single episode, unspecified; F17.200 Nicotine dependence, unspecified, uncomplicated; E87.6 Hypokalemia; L03.113 Cellulitis of right upper limb; W18.30XA Fall on same level, unspecified, initial encounter; E78.5 Hyperlipidemia, unspecified; F10.20 Alcohol dependence, uncomplicated; M54.9 Dorsalgia, unspecified; G89.29 Other chronic pain; I73.9 Peripheral vascular disease, unspecified; M43.16 Spondylolisthesis, lumbar region; M19.90 Unspecified osteoarthritis, unspecified site; R26.2 Difficulty in walking, not elsewhere classified; E86.0 Dehydration; B19.20 Unspecified viral hepatitis C without hepatic coma; N28.9 Disorder of kidney and ureter, unspecified; D62 Acute posthemorrhagic anemia; Z79.82 Long term (current) use of aspirin; Z79.51 Long term (current) use of inhaled steroids; Z79.899 Other long term (current) drug therapy; Y93.89 Activity, other specified; Y92.098 Other place in other non-institutional residence as the place of occurrence of the external cause; Z88.0 Allergy status to penicillin; Z98.51 Tubal ligation status; I25.2 Old myocardial infarction; Z88.8 Allergy status to other drugs, medicaments and biological substances; Z85.9 Personal history of malignant neoplasm, unspecified; Z95.1 Presence of aortocoronary bypass graft; Y99.8 Other external cause status
CPT/HCPCS: 36415; 71045; 72110; 73502; 80053; 81003; 83735; 84100; 85025; 85610; 85730; 86885; 86900; 86901; 87070; 93005; 94640; 94760; 96365; 96366; 96368; 96375; 96376; 97110; 97116; 97162; 97530; 99285; A4315; A6212; A6213; A6222; A6258; A6446; A6449; A6455; A7000; C1713; C1776; J0696; J1650; J2250; J2270; J2405; J2704; J3010; J3370; J3475; J3480; J3490; J7030; J7120

== ENCOUNTER 2018-11-27 07:51 | Day surgery (SDC) | payer MEDICARE, MEDICAID ==
[2018-11-27] VITALS (13 sets, daily range): BP systolic 93–128; BP diastolic 53–76
[~2018-11-27] VITALS: Ht 160 cm; Wt 54.7 kg
[~2018-11-27 07:51] MED LIST changes: -ASPI-1265 PO; +GABA800T11 PO; -GABA800T2 PO; +HYDR-4353 PO; +LIDOcaine 1% 30ml preserv. free vial SQ STA; +WHEE1EAC12 MC
[2018-11-27] MEDS ORDERED: ASPI-1265 PO (08:34)
[2018-11-27] MEDS ORDERED: POTA8CAP9 PO (08:34)
[2018-11-27] MEDS ORDERED: CALC-1197 PO (08:34)
[2018-11-27] MEDS ORDERED: fentaNYL/PF 50MCG/1 ML 2ML syringe IV ONE (08:35)
[2018-11-27] MEDS ORDERED: normal saline 1000ml 1,000 ML IV PRN (08:35)
[2018-11-27] MEDS ORDERED: MIDAZolam 1mg/ml 10ml vial IV ONE (08:35)
[2018-11-27 10:15] LABS: INR 1.2 INR; PARTIAL THROMBOPLASTIN TIME 31 SECONDS (22-32)
[2018-11-27 10:58] LABS: BASOPHILS % (AUTO) 0.3 % (0-1); EOSINOPHILS % (AUTO) 1.1 % (0-6); HEMATOCRIT 34.4 % (35.0-45.0); HEMOGLOBIN 11.2 g/dl (12.0-16.0); LYMPHOCYTES # (AUTO) 0.7 X10'3 (1.1-4.8); LYMPHOCYTES % (AUTO) 22.2 % (21-51); MEAN CORPUSCULAR HGB CONC 32.5 % (33.0-36.5); MEAN PLATELET VOLUME 8.4 FL (7.4-10.4); MONOCYTES # (AUTO) 0.3 X10'3 (0-0.9); MONOCYTES % (AUTO) 10.9 % (2-12); NEUTROPHILS % (AUTO) 65.5 % (42-75); PLATELET COUNT 98 X10'3 (140-440); RED BLOOD COUNT 4.15 X10'6 (4.20-5.60); RED CELL DISTRIBUTION WIDTH 15.1 % (11.5-14.5); WHITE BLOOD COUNT 3.1 X10'3 (4.5-11.0)
[2018-11-27] MEDS ORDERED: normal saline 1000ml 1,000 ML IV SCH (13:29)
[2018-11-27] MEDS ORDERED: HYDROcodone/acetaminophen 5mg/325mg tablet PO PRN ×2 (13:30)
== END 2018-11-27 15:18 | disposition home or self-care (01) ==
LOC: SSTAY O 07:51
PROVIDERS: ATTEND Radiology Diagnostic Radiology
DX: K70.30 Alcoholic cirrhosis of liver without ascites (principal); B19.20 Unspecified viral hepatitis C without hepatic coma; I25.10 Atherosclerotic heart disease of native coronary artery without angina pectoris; J44.9 Chronic obstructive pulmonary disease, unspecified; K21.9 Gastro-esophageal reflux disease without esophagitis; I73.9 Peripheral vascular disease, unspecified; J30.9 Allergic rhinitis, unspecified; G89.29 Other chronic pain; F32.9 Major depressive disorder, single episode, unspecified; Z79.82 Long term (current) use of aspirin; Z79.899 Other long term (current) drug therapy; Z98.890 Other specified postprocedural states
CPT/HCPCS: 36415; 47000; 76942; 85025; 85610; 85730; J2250; J3010; J3490; J7030; 88307; 88313